=== PATIENT | female | born 1985 | race Caucasian/White ===

== ENCOUNTER 2017-05-17 22:42 | Emergency (ER) | payer OTHER ==
[~2017-05-17] VITALS: Ht 157.5 cm; Wt 49.4 kg
[2017-05-18 01:08] VITALS: BP 119/86
== END 2017-05-18 01:08 | disposition home or self-care (01) ==
LOC: ED 22:42
DX: R19.7 Diarrhea, unspecified (principal); R51 Headache; E03.9 Hypothyroidism, unspecified; F32.9 Major depressive disorder, single episode, unspecified